=== PATIENT | female | born 1970 | race Two or more races ===

== ENCOUNTER → 2024-08-18 | Outpatient (CLI) | payer OTHER | END | disposition home or self-care (01) | LOC: SONOGRAMA 08:17 | PROVIDERS: ATTEND Pathology Anatomic Pathology & Clinical Pathology | DX: C50.919 Malignant neoplasm of unspecified site of unspecified female breast (principal); C77.3 Secondary and unspecified malignant neoplasm of axilla and upper limb lymph nodes; R59.9 Enlarged lymph nodes, unspecified ==